=== PATIENT | female | born 1965 | race Caucasian/White ===

== ENCOUNTER 2016-08-27 08:01 | Emergency (ER) | payer BC ==
--- NOTE | 2016-08-27 09:26 | UC ---
Respiratory Complaint HPI - HPI Summary HPI Summary: The patient comes in today for: 1. Sore throat and cough: Onset: 3 days ago. Palliative/provocative: Nothing makes it better or worse except swallowing makes it worse and a throat spray makes it better. Quality: Scratchy. Region: throat. Severity: 5/10 Time: Constant. Associated symptoms: Cough: None Rhinitis: Occassionally. Clear. Fevers: no temperature taken. Chest feel heavy. * - History of Current Complaint Chief Complaint: UCRespiratory Stated Complaint: SORE THROAT/COUGH/CONGESTION Time Seen by Provider: 08/27/16 08:32 Hx Obtained From: Patient Hx Last Menstrual Period: 20 years ago. ?: No - Allergies/Home Medications Allergies/Adverse Reactions: Allergies Allergy/AdvReac Type Severity Reaction Status Date / Time No Known Allergies Allergy Verified 08/27/16 08:17 Home Medications: Home Medications Aspirin EC Low Dose* [Ecotrin EC Low Dose*] 81 mg PO DAILY 08/27/16 [History Confirmed 08/27/16] Bp Med, ?Name 1 tab DAILY 08/27/16 [History] [place]-3 Fatty Acids [Fish Oil] 1,000 mg PO DAILY 08/27/16 [History Confirmed 10/08] PMH/Surg Hx/FS Hx/Imm Hx Previously Healthy: No Endocrine History Of: Denies: Diabetes, Thyroid Disease, Hyperthyroidism, Hypothyroidism, Dyslipidemia Cardiovascular History Of: Reports: Hypertension Denies: Cardiac Disorders, Pacemaker/ICD, Myocardial Infarction, Congestive Heart Failure, Atrial Fibrillation, Deep Vein Thrombosis, Bleeding Disorders Respiratory History Of: Denies: COPD, Asthma, Bronchitis, Pneumonia, Pulmonary Embolism GI/ History Of: Denies: Gastroesophageal Reflux, Ulcer, Gastrointestinal Bleed, Gall Bladder Disease, Kidney Stones, Diverticulitis, Renal Disease, Urosepsis Neurological History Of: Denies: TIA, CVA, Dementia, Seizures, Migraine Psychological History Of: Denies: Anxiety, Depression, Bipolar Disorder, Schizophrenia, Post Traumatic Stress Disorder Cancer History Of: Denies: Lung Cancer, Colorectal Cancer, Breast Cancer, Prostate Cancer, Cervical Cancer Other History Of: Anticoagulant Therapy - "Low dose aspirin every day." Negative For: HIV, Hepatitis B, Hepatitis C - Surgical History Surgical History: Yes Surgery Procedure, Year, and Place: C SECTION. HYSTERECROMY - Family History Known Family History: Positive: Cardiac Disease, Hypertension - Social History Occupation: Employed Full-time Alcohol Use: Occasionally Substance Use Type: None Smoking Status (MU): Light Every Day Tobacco Smoker Type: Cigarettes Amount Used/How Often: 1/2 PPD Household Exposure Type: Cigarettes - Immunization History Most Recent Influenza Vaccination: FALL 2015 Review of Systems Constitutional: Negative Skin: Negative Eyes: Negative ENT: Sore Throat Cardiovascular: Negative Gastrointestinal: Negative Genitourinary: Negative All Other Systems Reviewed And Are Negative: Yes Physical Exam Triage Information Reviewed: Yes Appearance: Well-Appearing, No Pain Distress, Well-Nourished Vital Signs: Initial Vital Signs Temp 98.2 F 08/27/16 08:18 Pulse 86 08/27/16 08:18 Resp 18 08/27/16 08:18 Pulse Ox 100 08/27/16 08:18 Vital Signs Reviewed: Yes Eyes: Positive: Conjunctiva Clear. Negative: Discharge ENT: Positive: Hearing grossly normal. Negative: Pharyngeal erythema, Nasal congestion, Nasal drainage, TM bulging, TM dull, TM red, Tonsillar swelling, Tonsillar exudate Dental: Negative: Gross Decay/Caries @, Dental Fracture @ Neck: Positive: Supple, Nontender, No Lymphadenopathy, Other: - There is tenderness to palpation of the right and left lobe of the thyroid. There is slight fullness, but no obvious thyromegally or nodules.. Negative: Nuchal Rigidity Respiratory: Positive: Lungs clear, No respiratory distress, No accessory muscle use. Negative: Crackles, Wheezing Cardiovascular: Positive: RRR, No Murmur Abdomen Description: Positive: Nontender, No Organomegaly, Soft Musculoskeletal: Positive: Strength Intact, ROM Intact, No Edema Neurological: Positive: Alert, Muscle Tone Normal Psychological: Positive: Age Appropriate Behavior, Consolable Skin: Negative: rashes, breakdown UC Diagnostic Evaluation - Laboratory O2 Sat by Pulse Oximetry: 100 Diagnostic Studies Comment: Strep test: (-) Respiratory Course/Dx - Course Course Of Treatment: The patient was told of a negative appearing posterior pharynx and tenderness over the lobes of the thyroid. She was told that this may mean that she has thyroiditis. She was also told that we are not able to assess chest heaviness or pressure, and that these symptoms may be signs of a serious chest condition ([place], PE). She was told that our formal recommendation is therefore to go to the ER. However, she did not want to do that. She was told that we can do an EKG and CXR, but she did not want to do this also. She states that she is confident that her chest pressure is related to her upper respiratory infection. She wanted a prescription for a numbing throat medication and prescription anti-inflammatory medication. - Differential Dx/Diagnosis Provider Diagnoses: Upper respiratory infection. Tenderness over the thyroid ( neck pain). Chest pressure Discharge - Discharge Plan Condition: Stable Disposition: HOME Patient Education Materials: Pharyngitis (ED) Additional Instructions: If you are not going to the ER for evaluation of chest pressure, please see your primary care provider as soon as you can. For your sore throat, use the naproxen and viscous lidocaine as directed and needed.
== END 2016-08-27 10:12 | disposition home or self-care (01) ==
LOC: UCCORT 08:01 → MERGE 08:01 → UCCORT 10:12
DX: J06.9 Acute upper respiratory infection, unspecified (principal); M54.2 Cervicalgia; R07.9 Chest pain, unspecified; I10 Essential (primary) hypertension; F17.210 Nicotine dependence, cigarettes, uncomplicated; Z79.82 Long term (current) use of aspirin
CPT/HCPCS: 87651; 99202; G0463